=== PATIENT | male | born 1945 | race Hispanic/Latino ===

== ENCOUNTER 2017-07-06 21:35 | Emergency (ER) | payer MEDICARE, BC ==
[2017-07-06 21:35] VITALS: BMI 26.4
[2017-07-06 21:47] VITALS: BP 144/89; PULSE 75; RESP 16; TEMP 97.6; O2SAT 100
--- NOTE | 2017-07-06 22:10 | ED PDOC ---
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 negative for: LOC, headache, nausea vomiting vision changes dizziness change in speech, mentation, numbness.tingling to UE/LE, CP, SOB. PT with pain to right hand-fifth digit with swelling deformity and tingling/ numbness and pain with ROM. Past Medical History Reviewed: Historical Data, Nursing Documentation, Vital Signs Vital Signs: Last Vital Signs Temp 97.6 F 07/06/17 21:42 Pulse 75 07/06/17 21:42 Resp 16 07/06/17 21:42 BP 144/89 07/06/17 21:42 Pulse Ox 100 07/06/17 21:42 - Medical History PMH: Alzheimer's Disease, Anemia, COPD, Dementia, Fractures (ribs) Denies: Chronic Kidney Disease - Surgical History Surgical History: Appendectomy - Family History Family History: States: No Known Family Hx - Home Medications Home Medications: Ambulatory Orders Medication Instructions Recorded Folic Acid 0.4 mg PO DAILY 11/03/14 Memantine [Namenda] 10 mg PO BID 11/03/14 Mirabegron [Myrbetriq] 50 mg PO DAILY 11/03/14 Bupropion HCl [Bupropion 150 mg PO DAILY 05/16/15 Hydrochloride Xl] Donepezil HCl [Donepezil HCl] 10 mg PO DAILY 05/16/15 Ergocalciferol [Calciferol] 5,000 iu PO DAILY 05/16/15 Finasteride [Proscar] 5 mg PO DAILY 05/16/15 Ibuprofen [Motrin] 400 mg PO Q6 #30 tab 07/06/17 - Allergies Allergies/Adverse Reactions: Allergies Allergy/AdvReac Type Severity Reaction Status Date / Time morphine Allergy ANAPHYLAXIS Verified 07/06/17 21:42 Review of Systems ROS Statement: Except As Marked, All Systems Reviewed And Found Negative Musculoskeletal: Positive for: Hand Pain Physical Exam - Reviewed Nursing Documentation Reviewed: Yes Vital Signs Reviewed: Yes - Physical Exam Appears: Positive for: Well, Non-toxic, No Acute Distress Skin: Positive for: Normal Color, Warm, DRY Cardiovascular/Chest: Positive for: Regular Rate, Rhythm Respiratory: Positive for: CNT, Normal Breath Sounds Extremity: Positive for: Other (right hand: 5th digit-swelling deformity pain nuerovasc intact) Neurologic/Psych: Positive for: Alert, Oriented - ECG O2 Sat by Pulse Oximetry: 100 - Radiology X-Ray: Interpreted by Me X-Ray Interpretation: Fracture - Progress ED Course And Treament: Pt will get xray, motrin for pain and ice pack to area ring place don ring finger right hand was removed with effort-lubrication was used. Medical Decision Making Medical Decision Making: pt placed in an ulnar gutter-given motrin 600mg will have f.u with MD chary pt is a [place] pt. Procedures - Splinting Location: right Hand-Made Type: orthoglass Splint: thumb spica Pre-Proc Neuro Vasc Exam: normal Post-Proc Neuro Vasc Exam: normal Disposition - Clinical Impression Clinical Impression: Hand fracture - Patient ED Disposition Is Patient to be Admitted: No Counseled Patient/Family Regarding: Studies Performed, Diagnosis, Need For Followup, Rx Given - Disposition Referrals: Teri Driver MD [Staff Provider] - Disposition: Routine/Home Disposition Time: 22:39 Condition: STABLE Prescriptions: Ibuprofen [Motrin] 400 mg PO Q6 #30 tab Instructions: Hand Fracture (ED)
--- NOTE | 2017-07-07 07:50 | RAD ---
PROCEDURE: Right Hand Radiographs. HISTORY: trauma attn fith digit COMPARISON: None. FINDINGS: BONES: Fracture at the base of the proximal phalanx 5th digit. The finding is marked on the study for review. JOINTS: Normal. No osteoarthritic changes. SOFT TISSUES: Soft tissue swelling attests to the acuity of the fracture. OTHER FINDINGS: None. IMPRESSION: Non articular fracture proximal aspect proximal phalanx right 5th digit. Please note: No preliminary interpretation of this examination rendered by emergency department personnel (Physician and/or PA declined to provide preliminary report of their findings/ observations).
== END 2017-07-06 23:56 | disposition home or self-care (01) ==
LOC: H.ER 21:35
DX: S62.91XA Unspecified fracture of right hand, initial encounter for closed fracture (principal); W19.XXXA Unspecified fall, initial encounter; Y92.89 Other specified places as the place of occurrence of the external cause; F02.80 Dementia in other diseases classified elsewhere, unspecified severity, without behavioral disturbance, psychotic disturbance, mood disturbance, and anxiety; G30.9 Alzheimer's disease, unspecified; J44.9 Chronic obstructive pulmonary disease, unspecified